=== PATIENT | female | born 1990 | race Caucasian/White ===

== ENCOUNTER 2018-11-27 05:42 | Emergency (ER) | payer MEDICAID ==
[~2018-11-27] VITALS: Ht 157.5 cm; Wt 63.5 kg
--- NOTE | 2018-11-27 05:50 | NUR ---
Patient ambulated with stable gait. A/Ox4. 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 Respiratory even and unlabored, no cough no sob. No cardiovascular distress noted, all pulses palpable. Denies any n/v/d.
[2018-11-27] MEDS ORDERED: CEPH-570 PO ×2 (05:52→06:38)
--- NOTE | 2018-11-27 06:02 | NUR ---
ER physician at bedside.
--- NOTE | 2018-11-27 06:05 | NUR ---
pelvic examination done by ER physician with chapparBernice ritter RN.
[2018-11-27 06:21] LABS: *URINE HCG, QUAL NEGATIVE (NEGATIVE)
[2018-11-27] MEDS ORDERED: KETOROLAC TROMETHAMINE 60 MG INJ IM ONE ×2 (06:30)
[2018-11-27 06:50] LABS: *BILIRUBIN,URIN NEGATIVE (NEGATIVE); *CLARITY,URINE CLEAR (CLEAR); *COLOR,URINE YELLOW (YELLOW); *KETONES,URINE NEGATIVE (NEGATIVE); *UROBILINOGEN,URINE 0.2 E.U./dl (NORMAL); LEUKOCYTE ESTERASE ,URINE TRACE (NEGATIVE); NITRITE, URINE NEGATIVE (NEGATIVE); PH,URINE 5.5 (5.0-8.0); UGLUCOSE NEGATIVE (NEGATIVE)
[2018-11-27 06:51] LABS: *BLOOD, URINE TRACE (NEGATIVE)
[2018-11-27 06:55] LABS: BACTERIA,URINE FEW /HPF (NONE SEEN); RBC,URINE 0-3 /HPF (0-3); SQUAMOUS EPITHELIAL CELL,UR FEW /HPF (NONE SEEN); WBC,URINE 0-3 /HPF (0-3)
[2018-11-27 07:04] LABS: BASOPHILS % (AUTO) 0.4 % (0.0-2.0); EOSINOPHILS # (AUTO) 0.1 K/uL (0.0-0.7); EOSINOPHILS % (AUTO) 1.7 % (0.0-7.0); HEMATOCRIT 38.5 % (31.2-41.9); HEMOGLOBIN 13.1 g/dL (10.9-14.3); LYMPHOCYTES # (AUTO) 1.9 K/uL (20.0-40.0); MEAN CORPUSCULAR HEMOGLOBIN 31.2 uug (24.7-32.8); MEAN CORPUSCULAR HGB CONC 34 g/dL (32.3-35.6); MONOCYTES # (AUTO) 0.6 K/uL (2.0-10.0); NEUTROPHILS # (AUTO) 3.8 K/uL (1.8-8.9); NEUTROPHILS % (AUTO) 58.9 % (38.5-71.5); PLATELET COUNT (AUTO) 229 K/uL (179-408); RED BLOOD CELL COUNT(AUTO) 4.19 MIL/uL (3.63-4.92); WHITE BLOOD COUNT (AUTO) 6.5 K/uL (3.8-11.8)
--- NOTE | 2018-11-27 07:08 | NUR ---
Report given to DESIRE Weiss
[2018-11-27 07:12] LABS: CREATININE 0.8 mg/dL (0.6-1.3); POTASSIUM 3.6 mmol/L (3.5-5.1)
[2018-11-27 07:17] LABS: BILIRUBIN,DIRECT 0.1 mg/dL (0.0-0.2); BILIRUBIN,TOTAL 0.5 mg/dL (0.2-1.0); TOTAL PROTEIN, SERUM 7.2 g/dL (6.4-8.2)
--- NOTE | 2018-11-27 07:20 | NUR ---
Pt is resting in bed, No c/o pain at this time, awaiting U/S.
--- NOTE | 2018-11-27 08:05 | NUR ---
Patient discharged to home in stable conditon. Written and verbal after care instructions given. Patient verbalizes understanding of instructions.
[2018-11-27 08:06] VITALS: BP 110/60
== END 2018-11-27 08:06 | disposition home or self-care (01) ==
LOC: ER 05:48
DX: R10.31 Right lower quadrant pain (principal); Z79.899 Other long term (current) drug therapy
CPT/HCPCS: 36415; 76856; 80048; 80076; 81000; 81001; 83690; 84703; 85025; 96372; 99284; J1885; A4663

== ENCOUNTER 2019-04-22 05:21 | Emergency (ER) | payer MEDICAID ==
[~2019-04-22] VITALS: Ht 160 cm; Wt 65.8 kg
--- NOTE | 2019-04-22 05:33 | NUR ---
Dr. Simon at bedside for MSE
--- NOTE | 2019-04-22 06:13 | NUR ---
Ultrasound at bedside
--- NOTE | 2019-04-22 06:42 | NUR ---
Patient discharged to home in stable conditon. Written and verbal after care instructions given. Patient verbalizes understanding of instructions. Patient ambulating with steady gait
[2019-04-22 06:44] VITALS: BP 122/73
== END 2019-04-22 06:42 | disposition home or self-care (01) ==
LOC: ER 05:27
DX: S86.912A Strain of unspecified muscle(s) and tendon(s) at lower leg level, left leg, initial encounter (principal); Z79.899 Other long term (current) drug therapy; X50.9XXA Other and unspecified overexertion or strenuous movements or postures, initial encounter; Y93.89 Activity, other specified; Y92.89 Other specified places as the place of occurrence of the external cause; Y99.8 Other external cause status
CPT/HCPCS: A4663

== ENCOUNTER 2019-09-12 15:36 | Emergency (ER) | payer MEDICAID ==
[~2019-09-12] VITALS: Ht 162.6 cm; Wt 65.8 kg
[~2019-09-12 15:36] MED LIST: BIRTH CONTROL
--- NOTE | 2019-09-12 15:54 | NUR ---
ERMD at bedside for MSE
--- NOTE | 2019-09-12 15:57 | NUR ---
Handoff reported to DESIRE Leal for continuity of care.
[2019-09-12] MEDS ORDERED: diphenhydrAMINE 50 MG/1 ML VIAL IV ONE (16:15)
[2019-09-12] MEDS ORDERED: IV NORMAL SALINE 1000 ML BAG IV ONE (16:15)
[2019-09-12] MEDS ORDERED: ACETAMINOPHEN ES 500 MG TABLET PO ONE (16:15)
[2019-09-12] MEDS ORDERED: METOCLOPRAMIDE HCL 10 MG/2 ML VIAL IV ONE (16:15)
[2019-09-12] MEDS ORDERED: ACETAMINOPHEN ES 500 MG TABLET ONE (16:16)
[2019-09-12] MEDS ORDERED: diphenhydrAMINE 50 MG/1 ML VIAL ONE (16:16)
[2019-09-12] MEDS ORDERED: METOCLOPRAMIDE HCL 10 MG/2 ML VIAL ONE (16:16)
[2019-09-12 16:18] LABS: BASOPHILS % (AUTO) 0.6 % (0.0-2.0); EOSINOPHILS # (AUTO) 0.1 K/uL (0.0-0.7); EOSINOPHILS % (AUTO) 1.4 % (0.0-7.0); HEMATOCRIT 41.7 % (31.2-41.9); HEMOGLOBIN 14.2 g/dL (10.9-14.3); LYMPHOCYTES # (AUTO) 2.5 K/uL (20.0-40.0); LYMPHOCYTES % (AUTO) 33.2 % (20.5-51.5); MEAN CORPUSCULAR HEMOGLOBIN 30.8 uug (24.7-32.8); MEAN CORPUSCULAR HGB CONC 34 g/dL (32.3-35.6); MEAN CORPUSCULAR VOLUME 90.3 fL (75.5-95.3); MONOCYTES # (AUTO) 0.6 K/uL (2.0-10.0); MONOCYTES % (AUTO) 8.3 % (0.0-11.0); NEUTROPHILS # (AUTO) 4.2 K/uL (1.8-8.9); NEUTROPHILS % (AUTO) 56.5 % (38.5-71.5); PLATELET COUNT (AUTO) 260 K/uL (179-408); RED BLOOD CELL COUNT(AUTO) 4.62 MIL/uL (3.63-4.92); WHITE BLOOD COUNT (AUTO) 7.5 K/uL (3.8-11.8)
--- NOTE | 2019-09-12 16:22 | NUR ---
TELE STROKE ACTIVATED VIA THE [employer] [facility].
[2019-09-12 16:26] LABS: POTASSIUM 3.7 mmol/L (3.5-5.1)
[2019-09-12] MEDS ORDERED: IOHEXOL 350 100 ML INFUS..BTL ONE (16:28)
[2019-09-12] MEDS ORDERED: IV NORMAL SALINE 250 ML IV ONE (16:28)
[2019-09-12] MEDS ORDERED: SWABABLE VALVE TRANSFER SET EA MC ONE (16:28)
[2019-09-12 16:32] LABS: BILIRUBIN,DIRECT 0.1 mg/dL (0.0-0.2); BILIRUBIN,TOTAL 0.3 mg/dL (0.2-1.0)
--- NOTE | 2019-09-12 16:50 | NUR ---
TELE STROKE MD ASSESSING THE PT VIA ROBOT.
--- NOTE | 2019-09-12 17:03 | NUR ---
AT 1611 CODE STROKE ACTIVATED,
[2019-09-12] MEDS ORDERED: AMIT10TA6 PO (17:12)
[2019-09-12] MEDS ORDERED: DROS1TAB2 PO (17:12)
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
[2019-09-12] MEDS ORDERED: SIMVASTATIN 10 MG TABLET PO ONE (17:15)
[2019-09-12] MEDS ORDERED: ASPIRIN 325 MG TABLET PO ONE (17:15)
[2019-09-12] MEDS ORDERED: SIMVASTATIN 10 MG TABLET ONE (17:20)
[2019-09-12] MEDS ORDERED: ASPIRIN 325 MG TABLET ONE (17:20)
--- NOTE | 2019-09-12 17:29 | NUR ---
ALL ORDERS COMPLETED, PT COMFORABLE, MONITOR SHOWS NSR, DENIED ANY SYMPTOMS OR COMPLAINTS, BELONGINGS LIST COMPLETED, PT AWAITING FOR INSURANCE APPROVAL PRIOR TO ADMISSION. TELE CODE COMPLETED.
[2019-09-12 18:03] LABS: *URINE HCG, QUAL NEGATIVE (NEGATIVE)
--- NOTE | 2019-09-12 18:45 | NUR ---
PT RESTING, BELONGINGS LIST COMPLETED, PT INFORMED FAMILY OF ADMIT STAUS AND REQUESTED NOT TO INFORM FAMILY.
--- NOTE | 2019-09-12 18:51 | NUR ---
DR BERNARD SPOKE TO DR ORTEGA TO INFORM THAT THE PT WAS ACCEPTED FOR ADMISSION TO [facility].
--- NOTE | 2019-09-12 18:57 | NUR ---
SBAR REPORT TO MARY PHIPPS. PT RESTING NO DISTRESS NOTED
--- NOTE | 2019-09-12 19:26 | NUR ---
Patient does not wish to proceed with medical care recommended by Dr. Hayes. Patient given information related to possible complications, up to and including , which could occur as a result of leaving the hospital at this time. Patient verbalizes understanding of risks involved due to leaving against medical advice. Patient has signed AMA form. VSS, no acute signs of distress, all belongings taken, IV site discontinued, patient provided a copy of lab and diagnostic results, informed to come back should conditions worsen.
[2019-09-12 19:29] VITALS: BP 122/79
[2019-09-13] MEDS ORDERED: AMITRIPTYLINE HCL 10 MG TABLET PO SCH (09:00)
[2019-09-13] MEDS ORDERED: [UNRECOGNIZED DRUG - OTHER] PO SCH (09:00)
== END 2019-09-12 19:30 | disposition left against medical advice (07) ==
LOC: ER 15:36
DX: I63.9 Cerebral infarction, unspecified (principal); R20.2 Paresthesia of skin; R29.701 NIHSS score 1; E78.1 Pure hyperglyceridemia; R51 Headache; R00.0 Tachycardia, unspecified; Z87.828 Personal history of other (healed) physical injury and trauma
CPT/HCPCS: 36415; 70450; 70496; 70498; 71045; 80048; 80061; 80076; 82962; 83735; 84484; 84703; 85025; 85730; 93005; 99291; Q9967; 70030-TC; A4663; A9150; J1200; J2765; J7030; J7050